=== PATIENT | female | born 1955 | race African-American/Black ===

== ENCOUNTER 2017-03-14 18:41 | Emergency (ER) | payer OTHER ==
[~2017-03-14] VITALS: Ht 165.1 cm; Wt 80.0 kg
[2017-03-14 18:42] VITALS: BP 162/92
[2017-03-14] MEDS ORDERED: LIDOCAINE HCL 1% 20ML VIAL (Pyxis) INJ INFIL ONE (21:15)
[2017-03-14] MEDS ORDERED: CEFTRIAXONE SODIUM 1 G/VIAL IM ONE (21:15)
== END 2017-03-14 23:03 | disposition home or self-care (01) ==
LOC: ER 18:52
DX: J18.9 Pneumonia, unspecified organism (principal); I10 Essential (primary) hypertension
CPT/HCPCS: 71045; 81025; 96372; 99283; J0696; J3490

== ENCOUNTER 2018-01-18 22:50 | Emergency (ER) | payer OTHER ==
[~2018-01-18] VITALS: Ht 170.2 cm; Wt 80.0 kg
[~2018-01-18 22:50] MED LIST: AMLO2.5T45 PO; ASPI-1158 PO; LISI-652 PO
[2018-01-18 22:53] VITALS: BP 174/79
== END 2018-01-18 23:15 | disposition left against medical advice (07) ==
LOC: ER 22:50
DX: Z53.21 Procedure and treatment not carried out due to patient leaving prior to being seen by health care provider (principal)
CPT/HCPCS: 93005

== ENCOUNTER 2019-10-26 10:08 | Emergency (ER) | payer OTHER ==
[~2019-10-26] VITALS: Ht 170.2 cm; Wt 77.0 kg
[2019-10-26] MEDS ORDERED: ONDANSETRON HCL 4MG/2ML INJ IV STA (10:31)
[2019-10-26] MEDS ORDERED: MORPHINE SULFATE 4 MG/ML CPJ (NOT FOR IM USE) IV STA (10:31)
[2019-10-26] MEDS ORDERED: NITROGLYCERIN OINT 1GM/INCH UDPKT TD ONE (10:45)
[2019-10-26] MEDS ORDERED: ASPIRIN 81MG TABLET PO ONE (10:45)
[2019-10-26 11:01] LABS: BASOPHILS % 0.6 % (0.0-2.0); EOSINOPHILS % 2.9 % (0.0-5.0); HEMATOCRIT. 34.2 % (36.0-48.0); HEMOGLOBIN. 10.9 g/dL (12.0-16.0); LYMPHOCYTES % 43.7 % (20.0-50.0); MEAN CORPUSCULAR HEMOGLOBIN 22.8 pg (28.0-32.0); MEAN CORPUSCULAR VOLUME 71.2 fL (81.0-99.0); MEAN PLATELET VOLUME 8.8 fl (7.4-10.4); MONOCYTES % 5.4 % (2.0-8.0); NEUTROPHILS % 47.4 % (40.0-76.0); PLATELET 163 x1000/uL (130-400); RED CELL DISTRIBUTION WIDTH 14.8 % (11.6-14.6)
[2019-10-26 11:05] LABS: CHLORIDE 110 mEq/L (98-107)
[2019-10-26] MEDS ORDERED: POTASSIUM CHLORIDE 20MEQ TABLET SR PO ONE (11:30)
[2019-10-26 12:10] VITALS: BP 126/62
== END 2019-10-26 16:01 | disposition home or self-care (01) ==
LOC: ER 10:34 → CANBEDREQ 17:57
DX: R07.89 Other chest pain (principal); R42 Dizziness and giddiness; I10 Essential (primary) hypertension; Z79.82 Long term (current) use of aspirin; Z98.890 Other specified postprocedural states
CPT/HCPCS: 36415; 70450; 71045; 80053; 83880; 84484; 85025; 93005; 99285; J2270; J2405

== ENCOUNTER 2022-05-05 11:49 | Emergency (ER) | payer MEDICARE, OTHER ==
[~2022-05-05] VITALS: Ht 167.6 cm; Wt 77.0 kg
[~2022-05-05 11:49] MED LIST changes: -ASPI-1158 PO; +ASPI-1406 PO
[2022-05-05 12:41] LABS: BASOPHILS % 0.4 % (0.0-2.0); EOSINOPHILS % 5.3 % (0.0-5.0); HEMATOCRIT. 35.3 % (36.0-48.0); HEMOGLOBIN. 11.3 g/dL (12.0-16.0); LYMPHOCYTES % 27.9 % (20.0-50.0); MEAN CORPUSCULAR HEMOGLOBIN 22.5 pg (28.0-32.0); MEAN CORPUSCULAR VOLUME 70.6 fL (81.0-99.0); MEAN PLATELET VOLUME 8.1 fl (7.4-10.4); MONOCYTES % 10.1 % (2.0-8.0); NEUTROPHILS % 56.3 % (40.0-76.0); PLATELET 252 x1000/uL (130-400); RED CELL DISTRIBUTION WIDTH 15.2 % (11.6-14.6)
[2022-05-05 13:34] LABS: CHLORIDE 103 mEq/L (98-107)
[2022-05-05] MEDS ORDERED: POTASSIUM CHLORIDE 20MEQ/PACKET PO NR (14:30)
[2022-05-05 16:06] VITALS: BP 158/65
== END 2022-05-05 16:07 | disposition home or self-care (01) ==
LOC: ER 11:49
DX: M79.10 Myalgia, unspecified site (principal); R05.9 Cough, unspecified; E87.6 Hypokalemia; I10 Essential (primary) hypertension
CPT/HCPCS: 36415; 71045; 80053; 84484; 85025; 93005; 99285

== ENCOUNTER 2022-11-23 07:46 | Emergency (ER) | payer OTHER ==
[~2022-11-23] VITALS: Ht 170.2 cm; Wt 77.1 kg
[2022-11-23 08:05] VITALS: BP 113/62; PULSE 82; RESP 16; O2SAT 100
[2022-11-23 08:30] VITALS: TEMP 98.4
[2022-11-23] MEDS ORDERED: ACETAMINOPHEN 325MG TABLET PO SCH (08:30)
[2022-11-23] MEDS ORDERED: TOPUD PO (10:10)
== END 2022-11-23 11:40 | disposition home or self-care (01) ==
LOC: ER 07:46
DX: S00.83XA Contusion of other part of head, initial encounter (principal); I10 Essential (primary) hypertension; X58.XXXA Exposure to other specified factors, initial encounter; Y93.89 Activity, other specified; Y92.89 Other specified places as the place of occurrence of the external cause; Y99.8 Other external cause status
CPT/HCPCS: 70486; 99284

== ENCOUNTER 2024-03-14 09:42 | Emergency (ER) | payer MEDICARE, OTHER ==
[~2024-03-14] VITALS: Ht 170.2 cm; Wt 77.0 kg
[~2024-03-14 09:42] MED LIST changes: +TOPUD PO
[2024-03-14 09:46] VITALS: O2SAT 99
[2024-03-14 09:59] VITALS: BP 128/68; PULSE 92; RESP 20; TEMP 97.6; O2SAT 98
[2024-03-14 11:35] LABS: HEMATOCRIT 37.8 % (36.0-48.0); HEMOGLOBIN 11.8 g/dL (12.0-16.0); MEAN CORPUSCULAR HEMOGLOBIN 22.2 pg (28.0-32.0); MEAN CORPUSCULAR HGB CONC 31.1 g/dL (31.0-37.0); MEAN CORPUSCULAR VOLUME 71.3 fL (81.0-99.0); PLATELET 220 x1000/uL (130-400); RED CELL DISTRIBUTION WIDTH 14.5 % (11.6-14.6); WHITE BLOOD COUNT 6.5 x1000/uL (4.5-11.0)
[2024-03-14 11:45] LABS: CHLORIDE 106 mEq/L (98-107); POTASSIUM 3.5 mEq/L (3.5-5.1); SODIUM 142 mEq/L (136-145)
[2024-03-14 11:46] LABS: CARBON DIOXIDE 25 mEq/L (21-32)
[2024-03-14 11:47] LABS: CALCIUM 10.2 mg/dL (8.7-10.4)
[2024-03-14 11:51] LABS: GLUCOSE 77 mg/dL (70-105)
[2024-03-14 11:52] LABS: TROPONIN I HIGH SENSITIVITY 32 ng/L (3.0-34); UREA NITROGEN BLOOD 17 mg/dL (9-23)
== END 2024-03-14 15:59 | disposition left against medical advice (07) ==
LOC: ER 09:46
DX: R06.02 Shortness of breath (principal); I10 Essential (primary) hypertension; Z98.890 Other specified postprocedural states; Z79.899 Other long term (current) drug therapy
CPT/HCPCS: 36415; 71046; 80048; 84484; 85027; 93005; 99285

== ENCOUNTER 2024-09-15 08:40 | Emergency (ER) | payer MEDICARE, OTHER ==
[~2024-09-15] VITALS: Ht 170.2 cm; Wt 78.0 kg
[2024-09-15 09:03] VITALS: O2SAT 98
[2024-09-15 09:59] LABS: CLARITY URINE CLOUDY (CLEAR); COLOR URINE YELLOW (YELLOW); GLUCOSE URINE NEGATIVE (NEGATIVE); KETONES URINE TRACE (NEGATIVE); LEUKOCYTE ESTERASE URINE 2+ (NEGATIVE); NITRITE URINE NEGATIVE (NEGATIVE); OCCULT BLOOD URINE NEGATIVE (NEGATIVE); PH URINE 6.0 (4.5-8.0); PROTEIN URINE NEGATIVE (NEGATIVE); SPECIFIC GRAVITY URINE 1.020 (1.005-1.030); UROBILINOGEN URINE 0.2 E.U./dL (0.2-1.0)
[2024-09-15 10:05] LABS: BASOPHILS % 0.5 % (0.0-2.0); EOSINOPHILS % 3.3 % (0.0-5.0); HEMATOCRIT. 35.7 % (36.0-48.0); HEMOGLOBIN. 11.3 g/dL (12.0-16.0); LYMPHOCYTES % 44.0 % (20.0-50.0); MEAN PLATELET VOLUME 8.1 fl (7.4-10.4); MONOCYTES % 4.5 % (2.0-8.0); NEUTROPHILS % 47.7 % (40.0-76.0); PLATELET 195 x1000/uL (130-400); RED BLOOD CELL COUNT 5.09 mill/uL (4.2-5.4); RED CELL DISTRIBUTION WIDTH 14.7 % (11.6-14.6)
[2024-09-15 10:20] LABS: CREATININE 0.9 mg/dL (0.6-1.0); UREA NITROGEN BLOOD 12 mg/dL (9-23)
[2024-09-15 10:21] LABS: ASPARTATE AMINOTRANSFERASE 19 IU/L (<34)
[2024-09-15 10:22] LABS: BILIRUBIN DIRECT 0.2 mg/dL (<=3.0); BILIRUBIN TOTAL 0.7 mg/dL (0.1-1.0); PROTEIN TOTAL 7.9 g/dL (6.0-8.3)
[2024-09-15 10:32] LABS: SQUAMOUS EPITHELIAL CELL URINE 3+ /lpf (RARE/1+)
[2024-09-15 10:33] LABS: BACTERIA URINE 4+; WBC URINE 15-25 /hpf (0-2)
[2024-09-15 10:35] LABS: RBC URINE 0-2 /hpf (0-2)
[2024-09-15] MEDS ORDERED: CEPH500C2 MT (10:45)
[2024-09-15] MEDS ORDERED: NAPR220C61 MT (10:46)
[2024-09-15] MEDS: IBUPROFEN 600MG TABLET PO ONE (10:55)
[2024-09-15 10:57] VITALS: BP 139/72; PULSE 68; RESP 17; TEMP 36.7; O2SAT 98
== END 2024-09-15 10:59 | disposition home or self-care (01) ==
LOC: ER 08:40
DX: N39.0 Urinary tract infection, site not specified (principal); N89.8 Other specified noninflammatory disorders of vagina; M51.372 Other intervertebral disc degeneration, lumbosacral region with discogenic back pain and lower extremity pain; I10 Essential (primary) hypertension; Z98.890 Other specified postprocedural states; Z79.899 Other long term (current) drug therapy
CPT/HCPCS: 36415; 80048; 80076; 81003; 85025; 99283

== ENCOUNTER 2024-09-23 07:41 | Emergency (ER) | payer MEDICARE, OTHER ==
[~2024-09-23] VITALS: Ht 172.7 cm; Wt 77.0 kg
[~2024-09-23 07:41] MED LIST changes: +CEPH500C2 MT; +NAPR220C61 MT
[2024-09-23 07:45] VITALS: O2SAT 97
[2024-09-23] MEDS: IBUPROFEN 600MG TABLET PO ONE (08:23)
[2024-09-23] MEDS ORDERED: POLY17PO3 MT (10:37)
[2024-09-23 10:43] VITALS: BP 120/72; PULSE 65; RESP 16; TEMP 36.9; O2SAT 99
== END 2024-09-23 10:45 | disposition home or self-care (01) ==
LOC: ER 07:41
DX: M51.26 Other intervertebral disc displacement, lumbar region (principal); M51.27 Other intervertebral disc displacement, lumbosacral region; K59.00 Constipation, unspecified; I10 Essential (primary) hypertension; Z79.899 Other long term (current) drug therapy; Z98.890 Other specified postprocedural states
CPT/HCPCS: 74176; 99284